=== PATIENT | male | born 1935 | race Caucasian/White ===

== ENCOUNTER 2017-04-07 08:01 | Emergency (ER) | payer MEDICARE, OTHER ==
[2017-04-07] MEDS ORDERED: Sodium Chloride 0.9% 10 ML Syringe FLUSH PRN (08:19)
--- NOTE | 2017-04-07 08:26 | EDM.PDOC ---
ED HPI GENERAL MEDICAL PROBLEM - General Chief Complaint: Chest Pain Stated Complaint: CHEST PAIN Time Seen by Provider: 04/07/17 08:00 Source of Information: Reports: Patient, EMS, EMS notes reviewed, Family History Limitations: Reports: No limitations - History of Present Illness INITIAL COMMENTS - FREE TEXT/NARRATIVE: Vonda awoke at 6 am this morning with upper retrosternal chest pain, characterized as a pressure sensation with nausea and some dizziness. Sxs persisted for several minutes until he was able to belch at which time sxs subsided. There was no radiation of pain, sweating, SOB or abdominal pain. He then developed intrascapular pain that persisted until arrival by EMS, at which time the pain and nausea subsided. He still feels lt headiness. A 12 lead ekg noted NSR. - Related Data Allergies Allergy/AdvReac Type Severity Reaction Status Date / Time No Known Allergies Allergy Verified 04/07/17 08:17 Home Meds: Home Meds Acetaminophen 325 mg PO Q6H PRN 04/07/17 [History] Aspirin 325 mg PO DAILY 04/07/17 [History] Clopidogrel [Plavix] 75 mg PO BEDTIME 04/07/17 [History] Furosemide [Lasix] 20 mg PO DAILY 04/07/17 [History] Isosorbide Mononitrate [Isosorbide Mononitrate ER] 120 mg PO DAILY 04/07/17 [ History] Lisinopril 10 mg PO DAILY 04/07/17 [History] Metoprolol Tartrate 50 mg PO BID 04/07/17 [History] atorvaSTATin [Lipitor] 40 mg PO BEDTIME 04/07/17 [History] Past Medical History Cardiovascular History: Reports: Bypass, CAD, High cholesterol, Hypertension, [place] , Stents ED ROS GENERAL - Review of Systems Review Of Systems: See Below Constitutional: Reports: no symptoms HEENT: Reports: No symptoms Respiratory: Reports: No Symptoms Cardiovascular: Reports: Chest pain, Lightheadedness Endocrine: Reports: no symptoms GI/Abdominal: Reports: Nausea : Reports: no symptoms Musculoskeletal: Reports: back pain (interscapular) Skin: Reports: no symptoms Neurological: Reports: No Symptoms Psychiatric: Reports: No symptoms Hematologic/Lymphatic: Reports: no symptoms Immunologic: Reports: no symptoms ED EXAM, GENERAL - Physical Exam Exam: See Below Exam Limited By: No limitations General Appearance: alert, WD/WN, no apparent distress Eye Exam: bilateral eye: normal inspection, PERRL Ears: normal external exam Nose: normal inspection Throat/Mouth: Normal inspection, Normal oropharynx Head: normocephalic Neck: normal inspection, supple, non-tender, full range of motion Respiratory/Chest: no respiratory distress, lungs clear, normal breath sounds, no accessory muscle use, chest non-tender Cardiovascular: regular rate, rhythm, no edema, no JVD, no murmur GI/Abdominal: Normal Bowel Sounds, Soft, Non-Tender, No Organomegaly, No Distention, No Mass (Male) Exam: No hernia, Normal inspection Back Exam: normal inspection, full range of motion Extremities: normal inspection Neurological: alert, oriented, CN II-XII intact, no motor/sensory deficits Psychiatric: normal affect, normal mood Skin Exam: Warm, Dry, Intact Lymphatic: no adenopathy Course - Vital Signs Text/Narrative:: Vonda continued to experience some dizziness ie lt headiness during the [facility] ED visit, without chest pain or back pain. Lab noted Hgb 15.8 gm, WBC 7300, plts normal; CMP normal for age, nonFBS 140; Troponin I <0.01, BNP 139; chest x ray: mild cardiac enlargement, no infiltrates; admission ekg noted NSR with LVH with some repolarization findings, follow up ekg 2 hrs later noting PACs, LVH and some repolarization findings unchanged from 2011. He ambulated in the ED without difficulty. Lt headiness has subsided at time of discharge. Last Recorded V/S: Last Vital Signs Temp 36.4 C 04/07/17 08:18 Pulse 65 04/07/17 08:18 Resp 22 H 04/07/17 08:18 BP 168/78 H 04/07/17 08:18 Pulse Ox 96 04/07/17 08:18 - Orders/Labs/Meds Orders: Active Orders 24 hr Category Date Time Status EKG Documentation Completion [RC] ASDIRECTED Care 04/07/17 09:18 Ordered Chest 1V Frontal [CR] Stat Exams 04/07/17 08:19 Ordered Sodium Chloride 0.9% [Saline Flush] Med 04/07/17 08:19 Ordered 10 ml FLUSH ASDIRECTED PRN Peripheral IV Insertion Adult [OM.PC] Routine Oth 04/07/17 08:19 Ordered EKG 12 Lead [EK] Routine Ther 04/07/17 08:20 Ordered EKG 12 Lead [EK] Routine Ther 04/07/17 09:18 Ordered Medication Orders Sodium Chloride (Saline Flush) 10 ml FLUSH ASDIRECTED PRN PRN Reason: Keep Vein Open Labs: Laboratory Tests 04/07/17 04/07/17 04/07/17 Range/Units 08:10 08:10 08:10 WBC 7.3 (4.5-12.0) X10-3/uL RBC 5.10 (4.30-5.75) x10(6)uL Hgb 15.8 H (11.5-15.5) g/dL Hct 46.5 (30.0-51.3) % MCV 91.2 (80-96) fL MCH 31.0 (27.7-33.6) pg MCHC 34.0 (32.2-35.4) g/dL RDW 13.1 (11.5-15.5) % Plt Count 132 (125-369) X10(3)uL MPV 9.1 (7.4-10.4) fL Neut % (Auto) 79.2 (46-82) % Lymph % (Auto) 12.0 L (13-37) % [place] % (Auto) 7.3 (4-12) % Eos % (Auto) 1 (1.0-5.0) % Baso % (Auto) 1 (0-2) % Neut # (Auto) 5.8 (1.6-8.3) # Lymph # (Auto) 0.9 (0.6-5.0) # [place] # (Auto) 0.5 (0.0-1.3) # Eos # (Auto) 0.1 (0.0-0.8) # Baso # (Auto) 0.0 (0.0-0.2) # Sodium 138 (135-145) mmol/L Potassium 4.4 (3.5-5.3) mmol/L Chloride 104 (100-110) mmol/L Carbon Dioxide 24 (23-29) mmol/L BUN 16 (8-23) mg/dL Creatinine 1.1 (0.6-1.3) mg/dL Est Cr Clr Drug Dosing 52.67 mL/min Estimated GFR (MDRD) > 60 (>60) BUN/Creatinine Ratio 14.5 (9-20) Glucose 140 H (80-116) mg/dL Calcium 8.6 (8.6-10.2) mg/dL Total Bilirubin 0.8 (0.1-1.3) mg/dL AST 24 (5-27) IU/L ALT 22 (14-26) IU/L Alkaline Phosphatase 95 (56-112) IU/L Troponin I < 0.01 L (0.02-0.06) NG/ML B-Natriuretic Peptide (0-100) pg/mL Total Protein 7.1 (6.0-8.0) g/dL Albumin 4.4 (3.2-4.6) g/dL Globulin 2.7 g/dL Albumin/Globulin Ratio 1.6 /09/14 Range/Units 08:10 WBC (4.5-12.0) X10-3/uL RBC (4.30-5.75) x10(6)uL Hgb (11.5-15.5) g/dL Hct (30.0-51.3) % MCV (80-96) fL MCH (27.7-33.6) pg MCHC (32.2-35.4) g/dL RDW (11.5-15.5) % Plt Count (125-369) X10(3)uL MPV (7.4-10.4) fL Neut % (Auto) (46-82) % Lymph % (Auto) (13-37) % [place] % (Auto) (4-12) % Eos % (Auto) (1.0-5.0) % Baso % (Auto) (0-2) % Neut # (Auto) (1.6-8.3) # Lymph # (Auto) (0.6-5.0) # [place] # (Auto) (0.0-1.3) # Eos # (Auto) (0.0-0.8) # Baso # (Auto) (0.0-0.2) # Sodium (135-145) mmol/L Potassium (3.5-5.3) mmol/L Chloride (100-110) mmol/L Carbon Dioxide (23-29) mmol/L BUN (8-23) mg/dL Creatinine (0.6-1.3) mg/dL Est Cr Clr Drug Dosing mL/min Estimated GFR (MDRD) (>60) BUN/Creatinine Ratio (9-20) Glucose (80-116) mg/dL Calcium (8.6-10.2) mg/dL Total Bilirubin (0.1-1.3) mg/dL AST (5-27) IU/L ALT (14-26) IU/L Alkaline Phosphatase (56-112) IU/L Troponin I (0.02-0.06) NG/ML B-Natriuretic Peptide 139 H (0-100) pg/mL Total Protein (6.0-8.0) g/dL Albumin (3.2-4.6) g/dL Globulin g/dL Albumin/Globulin Ratio Meds: Medications Generic Name Dose Route Start Last Admin Trade Name Freq PRN Reason Stop Dose Admin Sodium Chloride 10 ml 04/07/17 08:19 Saline Flush FLUSH ASDIRECTED PRN Keep Vein Open Departure - Departure Time of Disposition: 09:30 Disposition: Home, Self-Care 01 Condition: good Clinical Impression: Chest pain Qualifiers: Chest pain type: unspecified Qualified Code(s): R07.9 - Chest pain, unspecified Forms: ED Department Discharge - Problem List & Annotations (1) Chest pain SNOMED Code(s): 18761270 Code(s): R07.9 - CHEST PAIN, UNSPECIFIED Status: Acute Current Visit: Yes Annotation/Comment:: Vonda is stable, without new findings for sx CAD. 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 No new meds dispensed. Qualifiers: Chest pain type: unspecified Qualified Code(s): R07.9 - Chest pain, unspecified - Problem List Review Problem List Initiated/Reviewed/Updated: Yes - My Orders Last 24 Hours: My Active Orders 04/07/17 08:19 Chest 1V Frontal [CR] Stat Sodium Chloride 0.9% [Saline Flush] 10 ml FLUSH ASDIRECTED PRN Peripheral IV Insertion Adult [OM.PC] Routine 04/07/17 08:20 EKG 12 Lead [EK] Routine 04/07/17 09:18 EKG Documentation Completion [RC] ASDIRECTED EKG 12 Lead [EK] Routine - Assessment/Plan Last 24 Hours: My Active Orders 04/07/17 08:19 Chest 1V Frontal [CR] Stat Sodium Chloride 0.9% [Saline Flush] 10 ml FLUSH ASDIRECTED PRN Peripheral IV Insertion Adult [OM.PC] Routine 04/07/17 08:20 EKG 12 Lead [EK] Routine 04/07/17 09:18 EKG Documentation Completion [RC] ASDIRECTED EKG 12 Lead [EK] Routine Plan: Follow up with Cardiology at the [facility].
--- NOTE | 2017-04-07 13:06 | CR ---
INDICATION: Chest pain. CHEST: AP view of the chest was obtained 04/07/2017 and compared with 2010, again revealing evidence of previous cardiac surgery with median sternotomy with heart at the upper limits of normal in size or slightly enlarged. The aorta is tortuous with calcification in the arch. A definite active infiltrate or effusion was not identified. IMPRESSION: 1. No acute process. 2. ASHD with cardiomegaly. MTDD
== END 2017-04-07 09:43 | disposition home or self-care (01) ==
LOC: FB.ED 08:01
DX: R07.9 Chest pain, unspecified (principal); I25.10 Atherosclerotic heart disease of native coronary artery without angina pectoris; E78.00 Pure hypercholesterolemia, unspecified; I10 Essential (primary) hypertension; I25.2 Old myocardial infarction; R42 Dizziness and giddiness; Z95.1 Presence of aortocoronary bypass graft; Z95.5 Presence of coronary angioplasty implant and graft; Z79.899 Other long term (current) drug therapy
CPT/HCPCS: 36415; 71010; 80053; 83880; 84484; 85025; 93005; 99284; 99285

== ENCOUNTER 2019-01-24 08:39 | Emergency (ER) | payer OTHER, MEDICARE ==
--- NOTE | 2019-01-24 10:42 | EDM.PDOC ---
ED HPI GENERAL MEDICAL PROBLEM - General Chief Complaint: General Stated Complaint: WEAKNESS DIZZY Time Seen by Provider: 01/24/19 08:50 Source of Information: Reports: Patient History Limitations: Reports: No Limitations - History of Present Illness INITIAL COMMENTS - FREE TEXT/NARRATIVE: This pleasant 83-year-old awoke at 3 AM set up became dizzy rebound dizziness went away. At 6 AM he got out of bed felt lightheaded again. To the bathroom came back patient's or falls. He has a baseline of 2-30 years transient chest pain in the morning and he pulls his bed shirt off he notes sometimes when he takes nitroglycerin a minute later he experiences belching and his chest discomfort is relieved. He denies GERD. Has slight increase of swelling of his ankles. He denies irregularity of heartbeat or palpitations. 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 Upper Chest Pain Score (Numeric/FACES): 0 - Related Data Allergies Allergy/AdvReac Type Severity Reaction Status Date / Time No Known Allergies Allergy Verified 01/24/19 10:51 Home Meds: Home Meds Acetaminophen 325 mg PO Q6H PRN 04/07/17 [History] Aspirin 325 mg PO DAILY 04/07/17 [History] Clopidogrel [Plavix] 75 mg PO BEDTIME 04/07/17 [History] Furosemide [Lasix] 20 mg PO DAILY 04/07/17 [History] Isosorbide Mononitrate [Isosorbide Mononitrate ER] 120 mg PO DAILY 04/07/17 [ History] Lisinopril 10 mg PO DAILY 04/07/17 [History] Metoprolol Tartrate 50 mg PO BID 04/07/17 [History] atorvaSTATin [Lipitor] 40 mg PO BEDTIME 04/07/17 [History] Cholecalciferol (Vitamin D3) [Vitamin D] 5,000 unit PO DAILY 01/24/19 [History] Nitroglycerin 0.4 mg PO ASDIRECTED 01/24/19 [History] Past Medical History Cardiovascular History: Reports: Bypass, CAD, High Cholesterol, Hypertension, [place] , Stents - Past Surgical History Cardiovascular Surgical History: Reports: Coronary Artery Bypass, Coronary Artery Stent ED ROS GENERAL - Review of Systems Review Of Systems: ROS reveals no pertinent complaints other than HPI. Cardiovascular: Reports: Other (Chronic transient chest discomfort with taking his shirt off (musculskeletal pain).) Endocrine: Reports: No Symptoms GI/Abdominal: Reports: No Symptoms, Other (Belch preciptitated and gastric fullness relieved by using nitroglycerin) : Reports: Other (Nocturia) Musculoskeletal: Reports: No Symptoms Skin: Reports: No Symptoms Neurological: Reports: No Symptoms Psychiatric: Reports: No Symptoms ED EXAM, GENERAL - Physical Exam Exam: See Below Free Text/Narrative:: Pleasant healthy looking happy 83-year-old mildly overweight in with a prominent abdominal girth in no acute distress. He is well muscled and well nourished Exam Limited By: No Limitations General Appearance: Alert, WD/WN, No Apparent Distress Eye Exam: Bilateral Eye: Normal Inspection Ears: Normal External Exam, Other (Decreased hearing) Ear Exam: Bilateral Ear: Auricle Normal, Canal Normal, TM normal Nose: Normal Inspection Throat/Mouth: Normal Inspection, Normal Lips, Normal Teeth, Normal Gums, Normal Oropharynx, Normal Voice Head: Atraumatic, Normocephalic Neck: Normal Inspection, Supple, Non-Tender, Other (No bruits) Respiratory/Chest: No Respiratory Distress, Lungs Clear, Normal Breath Sounds, No Accessory Muscle Use, Chest Non-Tender Cardiovascular: Normal Peripheral Pulses, Regular Rate, Rhythm, Other (2+ pedal edema, distal 1/3 right leg has more blue discoloration and left head) Peripheral Pulses: 1+: Carotid (L) (No bruits), Carotid (R), Radial (R), Femoral (L), Dorsalis Pedis (L), Dorsalis Pedis (R) (He stated his right leg circulation was less than the left but both pulses are palpable, even though he' s been told on they can feel his right dorsalis pedis) GI/Abdominal: Normal Bowel Sounds, Non-Tender, No Organomegaly, No Distention, No Abnormal Bruit, No Mass (Male) Exam: No Hernia, Deferred Rectal (Males) Exam: Deferred Extremities: Normal Inspection, Normal Range of Motion, Non-Tender, Normal Capillary Refill, Pedal Edema Neurological: Alert, Oriented, CN II-XII Intact, Normal Cognition, Normal Gait, Normal Reflexes, No Motor/Sensory Deficits, Other (Except decreased hearing) Psychiatric: Normal Affect, Normal Mood Skin Exam: Warm, Dry, Intact, Other (Or cyanosis right lower extremity lower third compared to left, shiny dermis 1+ pedal edema bilateral) Lymphatic: No Adenopathy EKG INTERPRETATION Rhythm: NSR Rate (Beats/Min): 62 P-Wave: Enlarged (Left atrial enlargement) QRS: LBBB Course - Vital Signs Last Recorded V/S: Last Vital Signs Temp 36.6 C 01/24/19 09:05 Pulse 62 01/24/19 09:05 Resp 18 01/24/19 09:05 BP 159/89 H 01/24/19 09:05 Pulse Ox 97 01/24/19 09:05 - Orders/Labs/Meds Orders: Active Orders 24 hr Category Date Time Status EKG Documentation Completion [RC] ASDIRECTED Care 01/24/19 09:05 Active EKG Documentation Completion [RC] ASDIRECTED Care 01/24/19 09:05 Active CXR [Chest 1V Frontal] [CR] Stat Exams 01/24/19 09:05 Taken EKG 12 Lead [EK] Routine Ther 01/24/19 09:05 Ordered Labs: Laboratory Tests 01/24/19 01/24/19 01/24/19 Range/Units 09:30 09:30 09:30 WBC 6.2 (4.5-12.0) X10-3/uL RBC 5.12 (4.30-5.75) x10(6)uL Hgb 16.4 H (11.5-15.5) g/dL Hct 47.4 (30.0-51.3) % MCV 92.5 (80-96) fL MCH 31.9 (27.7-33.6) pg MCHC 34.5 (32.2-35.4) g/dL RDW 13.0 (11.5-15.5) % Plt Count 118 L (125-369) X10(3)uL MPV 9.6 (7.4-10.4) fL Neut % (Auto) 75.2 (46-82) % Lymph % (Auto) 15.8 (13-37) % [place] % (Auto) 7.3 (4-12) % Eos % (Auto) 1 (1.0-5.0) % Baso % (Auto) 1 (0-2) % Neut # (Auto) 4.6 (1.6-8.3) # Lymph # (Auto) 1.0 (0.6-5.0) # [place] # (Auto) 0.5 (0.0-1.3) # Eos # (Auto) 0.1 (0.0-0.8) # Baso # (Auto) 0.0 (0.0-0.2) # D-Dimer, Quantitative (0.0-0.59) mg/LFEU Sodium 139 (135-145) mmol/L Potassium 4.9 (3.5-5.3) mmol/L Chloride 104 (100-110) mmol/L Carbon Dioxide 29 (21-32) mmol/L BUN 18 (7-18) mg/dL Creatinine 1.2 (0.70-1.30) mg/dL Est Cr Clr Drug Dosing 46.64 mL/min Estimated GFR (MDRD) 58 L (>60) BUN/Creatinine Ratio 15.0 (9-20) Glucose 113 (80-116) mg/dL Calcium 8.5 L (8.6-10.2) mg/dL Total Bilirubin 0.8 (0.1-1.3) mg/dL AST 20 (5-25) IU/L ALT 26 (12-36) U/L Alkaline Phosphatase 94 (56-112) IU/L Troponin I 0.020 (<0.017-0.056) ng/mL NT-Pro-B Natriuret Pep 634 H (<=450) pg/mL Total Protein 6.4 (6.0-8.0) g/dL Albumin 3.7 (3.2-4.6) g/dL Globulin 2.7 g/dL Albumin/Globulin Ratio 1.4 01/24/19 Range/Units 09:30 WBC (4.5-12.0) X10-3/uL RBC (4.30-5.75) x10(6)uL Hgb (11.5-15.5) g/dL Hct (30.0-51.3) % MCV (80-96) fL MCH (27.7-33.6) pg MCHC (32.2-35.4) g/dL RDW (11.5-15.5) % Plt Count (125-369) X10(3)uL MPV (7.4-10.4) fL Neut % (Auto) (46-82) % Lymph % (Auto) (13-37) % [place] % (Auto) (4-12) % Eos % (Auto) (1.0-5.0) % Baso % (Auto) (0-2) % Neut # (Auto) (1.6-8.3) # Lymph # (Auto) (0.6-5.0) # [place] # (Auto) (0.0-1.3) # Eos # (Auto) (0.0-0.8) # Baso # (Auto) (0.0-0.2) # D-Dimer, Quantitative 0.71 H (0.0-0.59) mg/LFEU Sodium (135-145) mmol/L Potassium (3.5-5.3) mmol/L Chloride (100-110) mmol/L Carbon Dioxide (21-32) mmol/L BUN (7-18) mg/dL Creatinine (0.70-1.30) mg/dL Est Cr Clr Drug Dosing mL/min Estimated GFR (MDRD) (>60) BUN/Creatinine Ratio (9-20) Glucose (80-116) mg/dL Calcium (8.6-10.2) mg/dL Total Bilirubin (0.1-1.3) mg/dL AST (5-25) IU/L ALT (12-36) U/L Alkaline Phosphatase (56-112) IU/L Troponin I (<0.017-0.056) ng/mL NT-Pro-B Natriuret Pep (<=450) pg/mL Total Protein (6.0-8.0) g/dL Albumin (3.2-4.6) g/dL Globulin g/dL Albumin/Globulin Ratio Departure - Departure Time of Disposition: 10:30 (Working diagnosis near syncope. Orthostatic hypotension mediated by inadequate hydration. Near syncope, chronic chest wall pain last few seconds, 20-30 years duration with with dressing and pulling his shirt over his head. History of dyspepsia/belching relieved by nitroglycerin. Suggest vascular component to this. Congestive heart failure stable vascular stents bilateral lower extremities. 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 Be sure you pump you legs when you get out of bed, like I instructed you. So sit at the bedside for a few minutes before standing and while sitting, pump your legs as I instructed you. Also use the pumping technique while you're standing up at the sink. You have an enlarged heart and heart failure secondary to arteriosclerosis. You do not have chest pain. That is good. It would be good to consider getting an echo to determine the extent heart failure. [facility] - My Orders Last 24 Hours: My Active Orders 01/24/19 09:05 EKG Documentation Completion [RC] ASDIRECTED EKG Documentation Completion [RC] ASDIRECTED CXR [Chest 1V Frontal] [CR] Stat EKG 12 Lead [EK] Routine - Assessment/Plan Last 24 Hours: My Active Orders 01/24/19 09:05 EKG Documentation Completion [RC] ASDIRECTED EKG Documentation Completion [RC] ASDIRECTED CXR [Chest 1V Frontal] [CR] Stat EKG 12 Lead [EK] Routine
== END 2019-01-24 11:58 | disposition home or self-care (01) ==
LOC: FB.ED 08:39
DX: I11.0 Hypertensive heart disease with heart failure (principal); I50.32 Chronic diastolic (congestive) heart failure; I25.810 Atherosclerosis of coronary artery bypass graft(s) without angina pectoris; R55 Syncope and collapse; E66.9 Obesity, unspecified; Z79.82 Long term (current) use of aspirin; Z79.01 Long term (current) use of anticoagulants; Z95.5 Presence of coronary angioplasty implant and graft; Z68.35 Body mass index [BMI] 35.0-35.9, adult
CPT/HCPCS: 36415; 71045; 80053; 83880; 84484; 85025; 85379; 93005; 99284-25

== ENCOUNTER 2019-11-15 06:44 | Emergency (ER) | payer OTHER, MEDICARE ==
[2019-11-15] MEDS ORDERED: Sodium Chloride 0.9% 10 ML Syringe FLUSH PRN (06:57)
[2019-11-15] MEDS ORDERED: Nitroglycerin 0.4 MG Tab.SL SL PRN (06:59)
[2019-11-15] MEDS ORDERED: Aspirin 81 MG Tab.Chew PO ONE (06:59)
--- NOTE | 2019-11-15 07:55 | EDM.PDOC ---
ED HPI GENERAL MEDICAL PROBLEM - General Chief Complaint: Chest Pain Stated Complaint: CHEST PAIN Time Seen by Provider: 11/15/19 06:55 Source of Information: Reports: Patient History Limitations: Reports: No Limitations - History of Present Illness INITIAL COMMENTS - FREE TEXT/NARRATIVE: Patient presented to the ED because of chest pain which started at 2230 last night. the pain is sharp,3/10 denies having any N/V/ dyspnea or diaphoresis. He took 1 NTG, he belched and the pain went away. The chest pain recurred again this morning and after burping and belching the pain resolved. - Related Data Allergies Allergy/AdvReac Type Severity Reaction Status Date / Time No Known Allergies Allergy Verified 11/15/19 07:35 Home Meds: Home Meds Acetaminophen 325 mg PO Q6H PRN 04/07/17 [History] Clopidogrel [Plavix] 75 mg PO BEDTIME 04/07/17 [History] Furosemide [Lasix] 20 mg PO DAILY 04/07/17 [History] Isosorbide Mononitrate [Isosorbide Mononitrate ER] 120 mg PO DAILY 04/07/17 [ History] Lisinopril 40 mg PO DAILY 04/07/17 [History] Metoprolol Tartrate 50 mg PO BID 04/07/17 [History] atorvaSTATin [Lipitor] 40 mg PO BEDTIME 04/07/17 [History] Nitroglycerin 0.4 mg PO ASDIRECTED 01/24/19 [History] Aspirin [Lo-Dose Aspirin EC] 81 mg PO DAILY 11/15/19 [History] Cholecalciferol (Vitamin D3) [Vitamin D3] 1,000 unit PO BID 11/15/19 [History] Finasteride 5 mg PO DAILY 11/15/19 [History] Naproxen Sodium 220 mg PO BID PRN 11/15/19 [History] Pantoprazole Sodium 40 mg PO DAILY 11/15/19 [History] Spironolactone [Aldactone] 25 mg PO DAILY 11/15/19 [History] Past Medical History HEENT History: Reports: Cataract, Impaired Vision Cardiovascular History: Reports: Bypass, CAD, High Cholesterol, Hypertension, [place] , Stents Genitourinary History: Reports: Other (See Below) Other Genitourinary History: hx of prostate cancer Musculoskeletal History: Reports: Arthritis Endocrine/Metabolic History: Reports: Obesity/BMI 30+ Hematologic History: Reports: Blood Transfusion(s) Oncologic (Cancer) History: Reports: Prostate - Infectious Disease History Infectious Disease History: Reports: Chicken Pox - Past Surgical History HEENT Surgical History: Reports: Cataract Surgery Cardiovascular Surgical History: Reports: Coronary Artery Bypass, Coronary Artery Stent GI Surgical History: Reports: Appendectomy Male Surgical History: Reports: TURP-Transurethral Resection of Prostate Oncologic Surgical History: Reports: None Social & Family History - Family History Family Medical History: Noncontributory - Tobacco Use Smoking Status *Q: Former Smoker Used Tobacco, but Quit: Yes Month/Year Tobacco Last Used: 11/1947 - Caffeine Use Caffeine Use: Reports: None Caffeine Use Comment: drinks caffeine free pop and coffee occasionally. - Recreational Drug Use Recreational Drug Use: No ED ROS GENERAL - Review of Systems Review Of Systems: See Below Constitutional: Reports: No Symptoms HEENT: Reports: No Symptoms Respiratory: Reports: No Symptoms Cardiovascular: Reports: Chest Pain Endocrine: Reports: No Symptoms GI/Abdominal: Reports: No Symptoms : Reports: No Symptoms Musculoskeletal: Reports: No Symptoms Skin: Reports: No Symptoms Neurological: Reports: No Symptoms Psychiatric: Reports: No Symptoms ED EXAM, GENERAL - Physical Exam Exam: See Below Exam Limited By: No Limitations General Appearance: Alert, WD/WN, No Apparent Distress Ears: Normal External Exam, Normal Canal, Hearing Grossly Normal, Normal TMs Nose: Normal Inspection, Normal Mucosa, No Blood Throat/Mouth: Normal Inspection, Normal Lips, Normal Teeth, Normal Oropharynx Head: Atraumatic, Normocephalic Neck: Normal Inspection Respiratory/Chest: No Respiratory Distress, Lungs Clear, Normal Breath Sounds Cardiovascular: Normal Peripheral Pulses, Regular Rate, Rhythm, No Edema, No Gallop, No Murmur Course - Vital Signs Text/Narrative:: labs and EKG discussed with patient and his EKG old LBB,no acute changes Trop-neg Patient was chest pain free all throughout his stay in the ED. Last Recorded V/S: Last Vital Signs Temp 37.1 C 11/15/19 06:45 Pulse 67 11/15/19 06:45 Resp 14 11/15/19 06:45 BP 113/59 L 11/15/19 06:45 Pulse Ox 98 11/15/19 06:45 - Orders/Labs/Meds Orders: Active Orders 24 hr Category Date Time Status EKG Documentation Completion [RC] ASDIRECTED Care 11/15/19 06:59 Active Saline Lock Insert [OM.PC] Routine Oth 11/15/19 06:57 Ordered EKG 12 Lead [EK] Routine Ther 11/15/19 06:57 Ordered Labs: Laboratory Tests 11/15/19 11/15/19 11/15/19 Range/Units 07:16 07:16 07:16 WBC 6.8 (4.5-12.0) X10-3/uL RBC 4.42 (4.30-5.75) x10(6)uL Hgb 14.4 (13.5-17.8) g/dL Hct 41.5 (30.0-51.3) % MCV 93.8 (80-96) fL MCH 32.6 (27.7-33.6) pg MCHC 34.7 (32.2-35.4) g/dL RDW 12.6 (11.5-15.5) % Plt Count 151 (125-369) X10(3)uL MPV 8.2 (7.4-10.4) fL Neut % (Auto) 75.9 (46-82) % Lymph % (Auto) 14.1 (13-37) % Ritchie % (Auto) 7.7 (4-12) % Eos % (Auto) 2 (1.0-5.0) % Baso % (Auto) 1 (0-2) % Neut # (Auto) 5.2 (1.6-8.3) # Lymph # (Auto) 1.0 (0.6-5.0) # Ritchie # (Auto) 0.5 (0.0-1.3) # Eos # (Auto) 0.1 (0.0-0.8) # Baso # (Auto) 0.0 (0.0-0.2) # Sodium 138 (135-145) mmol/L Potassium 4.9 (3.5-5.3) mmol/L Chloride 103 (100-110) mmol/L Carbon Dioxide 27 (21-32) mmol/L BUN 23 H (7-18) mg/dL Creatinine 1.4 H (0.70-1.30) mg/dL Est Cr Clr Drug Dosing 39.28 mL/min Estimated GFR (MDRD) 48 L (>60) BUN/Creatinine Ratio 16.4 (9-20) Glucose 121 H (80-116) mg/dL Calcium 8.4 L (8.6-10.2) mg/dL Total Bilirubin 0.6 (0.1-1.3) mg/dL AST 22 (5-25) IU/L ALT 30 D (12-36) U/L Alkaline Phosphatase 77 (56-112) IU/L Troponin I < 0.017 L (<0.017-0.056) ng/mL NT-Pro-B Natriuret Pep 467 H (<=450) pg/mL Total Protein 6.2 (6.0-8.0) g/dL Albumin 3.6 (3.2-4.6) g/dL Globulin 2.6 g/dL Albumin/Globulin Ratio 1.4 Meds: Medications Discontinued Medications Generic Name Dose Route Start Last Admin Trade Name Freq PRN Reason Stop Dose Admin Aspirin 324 mg 11/15/19 06:59 Aspirin PO 11/15/19 07:00 ONETIME ONE Nitroglycerin 0.4 mg 11/15/19 06:59 Nitrostat SL Q5M PRN Chest Pain Sodium Chloride 10 ml 11/15/19 06:57 Saline Flush FLUSH ASDIRECTED PRN Keep Vein Open Departure - Departure Time of Disposition: 08:10 Disposition: Home, Self-Care 01 Condition: Good Clinical Impression: Chest pain Instructions: Angina Pectoris, Klai-vl-Sweg Referrals: PCP,Not In Area [Primary Care Provider] - Forms: ED Department Discharge Additional Instructions: please read discharge on chest pain follow up with your inside tester next week Sepsis Event Note - Evaluation Sepsis Screening Result: No Definite Risk - Focused Exam Vital Signs: Vital Signs Temp Pulse Resp BP Pulse Ox 11/15/19 06:45 37.1 C 67 14 113/59 L 98 Date Exam was Performed: 11/15/19 Time Exam was Performed: 15:14 - My Orders Last 24 Hours: My Active Orders 11/15/19 06:57 Saline Lock Insert [OM.PC] Routine EKG 12 Lead [EK] Routine 11/15/19 06:59 EKG Documentation Completion [RC] ASDIRECTED - Assessment/Plan Last 24 Hours: My Active Orders 11/15/19 06:57 Saline Lock Insert [OM.PC] Routine EKG 12 Lead [EK] Routine 11/15/19 06:59 EKG Documentation Completion [RC] ASDIRECTED
--- NOTE | 2019-11-15 09:29 | CR ---
INDICATION: Chest pain. CHEST, ONE VIEW: AP upright portable view of the chest 11/15/19 was compared with 01/24/19 and 04/07/17. The heart did not appear enlarged. Post median sternotomy changes noted. The aorta is tortuous with calcification in the arch. An active infiltrate or effusion was not identified. Overlying EKG leads are noted. IMPRESSION: Fairly stable appearance to the chest, no acute process. MTDD
== END 2019-11-15 08:15 | disposition home or self-care (01) ==
LOC: FB.ED 06:44
DX: R07.9 Chest pain, unspecified (principal); I25.2 Old myocardial infarction; I11.0 Hypertensive heart disease with heart failure; Z79.899 Other long term (current) drug therapy; Z87.891 Personal history of nicotine dependence; Z79.82 Long term (current) use of aspirin; Z90.49 Acquired absence of other specified parts of digestive tract
CPT/HCPCS: 36415; 71045; 80053; 83880; 84484; 85025; 93005; 93010; 99283; 99285-25

== ENCOUNTER 2022-02-24 08:13 | Emergency (ER) | payer MEDICARE | END 2022-02-24 09:35 | disposition home or self-care (01) | LOC: FB.ED 08:13 | DX: L03.90 Cellulitis, unspecified (principal); I25.10 Atherosclerotic heart disease of native coronary artery without angina pectoris; E78.00 Pure hypercholesterolemia, unspecified; I10 Essential (primary) hypertension; I25.2 Old myocardial infarction; E66.9 Obesity, unspecified; Z68.36 Body mass index [BMI] 36.0-36.9, adult; Z95.1 Presence of aortocoronary bypass graft | CPT/HCPCS: 36415; 71045; 80053; 83880; 84484; 85025; 85610; 85730; 93005; 99283; 99285-25 ==

== ENCOUNTER 2022-07-08 12:38 | Emergency (ER) | payer MEDICARE ==
[2022-07-08] MEDS: Aspirin 81 MG Tab.Chew PO ONE (12:58)
[2022-07-08] MEDS: Nitroglycerin 0.4 MG Tab.SL SL ONE (13:01)
[2022-07-08 13:11] LABS: ESTIMATED GFR 54 mL/min (>60)
== END 2022-07-08 14:15 | disposition home or self-care (01) ==
LOC: FB.ED 12:38
DX: R07.9 Chest pain, unspecified (principal); I25.2 Old myocardial infarction; I25.10 Atherosclerotic heart disease of native coronary artery without angina pectoris; E78.00 Pure hypercholesterolemia, unspecified; I10 Essential (primary) hypertension; K21.9 Gastro-esophageal reflux disease without esophagitis; E66.9 Obesity, unspecified; Z68.30 Body mass index [BMI] 30.0-30.9, adult; Z79.02 Long term (current) use of antithrombotics/antiplatelets; Z79.899 Other long term (current) drug therapy; Z95.1 Presence of aortocoronary bypass graft; Z79.82 Long term (current) use of aspirin
CPT/HCPCS: 36415; 71045; 80053; 83880; 84484; 85025; 85610; 93005; 93010; 99282; 99285; A9270-GY

== ENCOUNTER 2024-06-17 17:46 | Emergency (ER) | payer OTHER, MEDICARE ==
[2024-06-17] MEDS ORDERED: Sodium Chloride 0.9% 10 ML Syringe FLUSH PRN (20:15)
[2024-06-17 20:54] LABS: BLOOD UREA NITROGEN,BUN 29 mg/dL (7-18); BUN/CREATININE RATIO 17.1 (9-20); CALCIUM 8.4 mg/dL (8.6-10.2); CARBON DIOXIDE,CO2 27 mmol/L (21-32); CHLORIDE,CL 102 mmol/L (100-110); CREATININE 1.7 mg/dL (0.70-1.30); EST CRCL DRUG DOSING (CG) 29.06 mL/min; ESTIMATED GFR 38 mL/min (>60); GLUCOSE RANDOM 151 mg/dL (80-116); POTASSIUM,K 5.6 mmol/L (3.5-5.3); SODIUM,NA 133 mmol/L (135-145)
[2024-06-17 20:59] LABS: BASOPHILS PERCENT AUTO 0.3 % (0.3-3.8); EOSINOPHILS ABSOLUTE AUTO 0.1 x10-3/uL (0.0-0.6); EOSINOPHILS PERCENT AUTO 1.7 % (0.1-6.8); HEMATOCRIT 36.8 % (38.3-50.1); HEMOGLOBIN 12.4 g/dL (12.9-17.7); LYMPHOCYTES ABSOLUTE AUTO 0.9 x10-3/uL (0.5-4.5); LYMPHOCYTES PERCENT AUTO 10.1 % (15.8-45.3); MEAN CORPUSCULAR HGB CONC 33.7 g/dL (28.7-35.3); MEAN CORPUSCULAR VOLUME 95.1 fL (80.8-98.7); MEAN PLATELET VOLUME 8.8 fL (6.7-11.0); MONOCYTES ABSOLUTE AUTO 0.7 x10-3/uL (0.0-1.2); MONOCYTES PERCENT AUTO 8.2 % (5.5-15.2); NEUTROPHILS ABSOLUTE AUTO 6.8 x10-3/uL (1.7-6.9); NEUTROPHILS PERCENT AUTO 79.7 % (40.3-71.8); PLATELET COUNT,PLT 122 x10(3)uL (117-477); RED BLOOD CELL COUNT 3.87 x10(6)uL (3.90-5.90); RED CELL DISTRIBUTION WIDTH 14.4 % (12.4-15.0); WHITE BLOOD CELL COUNT,WBC 8.5 x10-3/uL (3.2-10.1)
[2024-06-17 21:01] LABS: A/G RATIO 1.2; ALANINE AMINOTRANSFERASE,ALT 28 U/L (12-36); ALBUMIN 3.1 g/dL (3.2-4.6); ALKALINE PHOSPHATASE 80 IU/L (56-112); ASPARTATE AMNIOTRANSFERASE,AST 22 IU/L (5-25); BILIRUBIN TOTAL 0.6 mg/dL (0.1-1.3); MAGNESIUM 1.9 mg/dL (1.8-2.5); PROTEIN TOTAL,TP 5.8 g/dL (6.0-8.0)
[2024-06-17 21:18] LABS: INR 1.1 (1.00-1.24); PROTHROMBIN TIME 11.3 sec (9.0-11.1); PTT,PARTIAL THROMBOPLSTIN TIME 25.2 SECONDS (24.4-33.2)
[2024-06-17] MEDS: Diphtheria,Pertussis(Acell),Tetanus Vaccine 0.5 ML Syringe IM ONE (22:20)
[2024-06-17] MEDS: Sodium Chloride 0.9% 1,000 ML IV SCH (22:51)
== END 2024-06-17 23:00 ==
LOC: FB.ED 17:46
DX: S06.6X0A Traumatic subarachnoid hemorrhage without loss of consciousness, initial encounter (principal); S70.02XA Contusion of left hip, initial encounter; I25.10 Atherosclerotic heart disease of native coronary artery without angina pectoris; E78.00 Pure hypercholesterolemia, unspecified; I25.2 Old myocardial infarction; K21.9 Gastro-esophageal reflux disease without esophagitis; E66.9 Obesity, unspecified; Z95.1 Presence of aortocoronary bypass graft; Z95.5 Presence of coronary angioplasty implant and graft; Z79.02 Long term (current) use of antithrombotics/antiplatelets; Z79.82 Long term (current) use of aspirin; Z79.899 Other long term (current) drug therapy; Z68.32 Body mass index [BMI] 32.0-32.9, adult; Z23 Encounter for immunization; W01.198A Fall on same level from slipping, tripping and stumbling with subsequent striking against other object, initial encounter; Y93.01 Activity, walking, marching and hiking; Y92.009 Unspecified place in unspecified non-institutional (private) residence as the place of occurrence of the external cause
CPT/HCPCS: 36415; 70450; 73502; 80053; 83735; 85025; 85610; 85730; 90471; 90715; 93005; 99285; J7030